=== PATIENT | female | born 1940 | race Two or more races ===

== ENCOUNTER 2020-10-14 22:24 | Inpatient (IN) | payer BC ==
[~2020-10-14] VITALS: Ht 157.5 cm; Wt 54.4 kg
[2020-10-14] MEDS ORDERED: SODIUM CHLORIDE 0.9% 1000ML BAG (SEPSIS BOLUS) IV ONE (22:45)
[2020-10-14 23:19] LABS: HEMATOCRIT. 31.5 % (36.0-48.0); HEMOGLOBIN. 10.8 g/dL (12.0-16.0); MEAN CORPUSCULAR HEMOGLOBIN 30.4 pg (28.0-32.0); MEAN CORPUSCULAR VOLUME 88.5 fL (81.0-99.0); PLATELET 374 x1000/uL (130-400); RED BLOOD CELL COUNT 3.57 mill/uL (4.2-5.4); RED CELL DISTRIBUTION WIDTH 14.9 % (11.6-14.6)
[2020-10-14 23:26] LABS: CHLORIDE 109 mEq/L (98-107)
[2020-10-14 23:32] LABS: CLARITY URINE TURBID (CLEAR); COLOR URINE DARK YELLOW (YELLOW); KETONES URINE NEGATIVE (NEGATIVE); LEUKOCYTE ESTERASE URINE 3+ (NEGATIVE); NITRITE URINE NEGATIVE (NEGATIVE); OCCULT BLOOD URINE 2+ (NEGATIVE); PROTEIN URINE 1+ (NEGATIVE); SPECIFIC GRAVITY URINE 1.018 (1.005-1.030); UROBILINOGEN URINE 0.2 E.U./dL (0.2-1.0)
[2020-10-14] MEDS ORDERED: FUROSEMIDE 100MG/10ML VIAL IV STA (23:50)
[2020-10-15] MEDS ORDERED: INSULIN REGULAR (HUMULIN R) 300UNITS/3ML VIAL IV ONE
[2020-10-15] MEDS ORDERED: SODIUM BICARBONATE 8.4% 1 MEQ/ML 50ML SYR IV ONE
[2020-10-15] MEDS ORDERED: DEXTROSE 50% WATER 50ML SYRINGE IV ONE
[2020-10-15] MEDS ORDERED: ALBUTEROL (0.083%) 2.5MG/3ML NEB HHN ONE
[2020-10-15] MEDS ORDERED: CALCIUM CHLORIDE 1GM/10ML SYR IV ONE
[2020-10-15] MEDS ORDERED: CALCIUM CHLORIDE 1GM/10ML SYR IV NR (01:00)
[2020-10-15] MEDS ORDERED: CEFTRIAXONE 1 G PREMIX 50 ML IV NR (01:30)
[2020-10-15 04:58] LABS: PLATELET ESTIMATE NORMAL
[2020-10-15] MEDS: ALBUTEROL (0.083%) 2.5MG/3ML NEB HHN NR ×2 (05:12→05:26)
[2020-10-15] MEDS ORDERED: ACETAMINOPHEN 325MG TABLET PO PRN (09:45)
[2020-10-15] MEDS ORDERED: ONDANSETRON HCL 4MG/2ML INJ IV PRN (09:45)
[2020-10-15] MEDS: SODIUM CHLORIDE 0.9% 1,000 ML IV SCH (16:11)
[2020-10-15] MEDS ORDERED: CEFTRIAXONE 1 G PREMIX 50 ML IV SCH (21:00)
[2020-10-16 03:55] VITALS: BP 134/68
[2020-10-16] MEDS: SODIUM CHLORIDE 0.9% 1,000 ML IV SCH ×3 (06:55→21:05)
[2020-10-16] MEDS: LORAZEPAM 2MG/ML CPJ IV PRN ×2 (06:55→18:15)
[2020-10-16 07:47] LABS: PHOSPHORUS 4.9 mg/dL (2.5-4.9)
[2020-10-16 07:50] LABS: HEMATOCRIT. 33.8 % (36.0-48.0); MEAN CORPUSCULAR HEMOGLOBIN 28.9 pg (28.0-32.0); MEAN CORPUSCULAR VOLUME 88.4 fL (81.0-99.0); MEAN PLATELET VOLUME 9.5 fl (7.4-10.4); PLATELET 363 x1000/uL (130-400); RED BLOOD CELL COUNT 3.82 mill/uL (4.2-5.4); RED CELL DISTRIBUTION WIDTH 15.2 % (11.6-14.6)
[2020-10-16 08:00] VITALS: BP 124/68
[2020-10-16 12:00] VITALS: BP 149/90
[2020-10-16 12:33] LABS: HEPATITIS B SURFACE ANTIGEN NEGATIVE
[2020-10-16] MEDS: OXYBUTYNIN CHLORIDE 5MG TABLET PO SCH ×2 (13:26→20:54)
[2020-10-16 13:29] LABS: PLATELET ESTIMATE NORMAL
[2020-10-16 16:00] VITALS: BP 140/90
[2020-10-16 20:00] VITALS: BP 185/97
[2020-10-16] MEDS ORDERED: SODIUM POLYSTYRENE SULFONATE 15 G/60 ML BOT PO ONE (20:00)
[2020-10-16] MEDS: QUETIAPINE FUMARATE 25MG TABLET PO SCH (20:54)
[2020-10-16] MEDS: CEFTRIAXONE 1,000 MG in DEXTROSE 5% WATER 50 ML IV SCH (20:54)
[2020-10-17] VITALS: BP 133/75
[2020-10-17 04:00] VITALS: BP 142/76
[2020-10-17 06:20] LABS: BASOPHILS % 0.9 % (0.0-2.0); EOSINOPHILS % 2.4 % (0.0-5.0); HEMATOCRIT. 32.3 % (36.0-48.0); HEMOGLOBIN. 10.6 g/dL (12.0-16.0); LYMPHOCYTES % 8.7 % (20.0-50.0); MEAN CORPUSCULAR HEMOGLOBIN 29.1 pg (28.0-32.0); MONOCYTES % 7.3 % (2.0-8.0); NEUTROPHILS % 80.7 % (40.0-76.0); PLATELET 336 x1000/uL (130-400); RED BLOOD CELL COUNT 3.62 mill/uL (4.2-5.4); RED CELL DISTRIBUTION WIDTH 15.1 % (11.6-14.6)
[2020-10-17 08:22] VITALS: BP 156/91
[2020-10-17] MEDS: SODIUM CHLORIDE 0.9% 1,000 ML IV SCH (08:56)
[2020-10-17] MEDS: OXYBUTYNIN CHLORIDE 5MG TABLET PO SCH ×2 (08:56→23:00)
[2020-10-17] MEDS: RISPERIDONE 0.5MG TABLET PO SCH (12:03)
[2020-10-17 12:11] VITALS: BP 142/82
[2020-10-17 16:03] VITALS: BP 141/84
[2020-10-17] MEDS: SODIUM CHLORIDE 0.45% 1,000 ML IV SCH (17:34)
[2020-10-17 20:00] VITALS: BP 154/86
[2020-10-17] MEDS: QUETIAPINE FUMARATE 25MG TABLET PO SCH (23:00)
[2020-10-17] MEDS: CEFTRIAXONE 1,000 MG in DEXTROSE 5% WATER 50 ML IV SCH (23:00)
[2020-10-18] VITALS: BP 164/98
[2020-10-18] MEDS: LORAZEPAM 2MG/ML CPJ IV PRN (00:18)
[2020-10-18 04:00] VITALS: BP 171/80
[2020-10-18 05:10] LABS: EOSINOPHILS % 4.9 % (0.0-5.0); HEMATOCRIT. 33.5 % (36.0-48.0); HEMOGLOBIN. 10.8 g/dL (12.0-16.0); LYMPHOCYTES % 11.4 % (20.0-50.0); MEAN CORPUSCULAR VOLUME 89.9 fL (81.0-99.0); MEAN PLATELET VOLUME 9.1 fl (7.4-10.4); MONOCYTES % 6.9 % (2.0-8.0); NEUTROPHILS % 75.8 % (40.0-76.0); PLATELET 314 x1000/uL (130-400); RED BLOOD CELL COUNT 3.72 mill/uL (4.2-5.4); RED CELL DISTRIBUTION WIDTH 15.1 % (11.6-14.6)
[2020-10-18] MEDS: SODIUM CHLORIDE 0.45% 1,000 ML IV SCH (05:55)
[2020-10-18 07:11] LABS: A/G RATIO 0.6 (0.7-1.7); ALBUMIN 2.5 g/dL (2.9-4.4); ALPHA-1-GLOBULIN 0.6 g/dL (0.0-0.4); ALPHA-2-GLOBULIN 1.6 g/dL (0.4-1.0); BETA GLOBULIN 0.9 g/dL (0.7-1.3); GAMMA GLOBULINS 0.8 g/dL (0.4-1.8); M-SPIKE Not Observed g/dL (Not Observed); TOTAL PROTEIN SERUM 6.5 g/dL (6.0-8.5)
[2020-10-18 08:06] VITALS: BP 172/91
[2020-10-18] MEDS: OXYBUTYNIN CHLORIDE 5MG TABLET PO SCH (09:54)
[2020-10-18] MEDS: RISPERIDONE 0.5MG TABLET PO SCH (09:54)
[2020-10-18 11:21] VITALS: BP 147/90
[2020-10-18] MEDS ORDERED: CEPH500T MT (12:26)
[2020-10-18 13:48] VITALS: BP 147/90
== END 2020-10-18 16:40 | disposition home health service (06) | DRG 871 ==
LOC: ER 22:24 → MICUSO 10-15 01:34 → 8WST 10-15 12:07 → MICUSO 10-15 13:46 → 6WST 10-16 02:30
PROVIDERS: ADMIT Internal Medicine; ATTEND Internal Medicine
DX: A41.9 Sepsis, unspecified organism (principal); E43 Unspecified severe protein-calorie malnutrition; N17.0 Acute kidney failure with tubular necrosis; G93.40 Encephalopathy, unspecified; N13.6 Pyonephrosis; F03.90 Unspecified dementia, unspecified severity, without behavioral disturbance, psychotic disturbance, mood disturbance, and anxiety; E87.8 Other disorders of electrolyte and fluid balance, not elsewhere classified; I12.9 Hypertensive chronic kidney disease with stage 1 through stage 4 chronic kidney disease, or unspecified chronic kidney disease; D64.9 Anemia, unspecified; E87.5 Hyperkalemia; Z20.822 Contact with and (suspected) exposure to COVID-19; Z85.51 Personal history of malignant neoplasm of bladder; Z92.3 Personal history of irradiation; Z82.49 Family history of ischemic heart disease and other diseases of the circulatory system; Z88.5 Allergy status to narcotic agent; Z68.21 Body mass index [BMI] 21.0-21.9, adult; R80.9 Proteinuria, unspecified; N18.9 Chronic kidney disease, unspecified
CPT/HCPCS: 36415; 71045; 76770; 80048; 80053; 81003; 82962; 83605; 83735; 84100; 84132; 84145; 84155; 84165; 84484; 85025; 86803; 87340; 87426; 93005; 94640; 97162; 99285; C1893; J0696; J1815; J1940; J2060; J3490; J7030; J7060; A4315